=== PATIENT | male | born 1955 | race Caucasian/White ===

== ENCOUNTER 2022-10-03 06:02 | Day surgery (SDC) | payer BC ==
[2022-09-28 11:54] LABS: BASOPHILS # (AUTO) 0.1 X10'3 (0-0.2); BASOPHILS % (AUTO) 0.7 % (0-1); EOSINOPHILS # (AUTO) 0.2 X10'3 (0-0.9); EOSINOPHILS % (AUTO) 2.4 % (0-6); HEMATOCRIT 43.6 % (42.0-52.0); HEMOGLOBIN 14.8 g/dl (14.0-17.9); LYMPHOCYTES # (AUTO) 1.5 X10'3 (1.1-4.8); MEAN CORPUSCULAR HEMOGLOBIN 29.8 PG (27.0-31.0); MEAN CORPUSCULAR HGB CONC 33.9 g/dL (33.0-36.5); MEAN CORPUSCULAR VOLUME 87.7 FL (78-98); MONOCYTES # (AUTO) 0.7 X10'3 (0-0.9); NEUTROPHILS # (AUTO) 7.6 X10'3 (1.8-7.7); NEUTROPHILS % (AUTO) 74.9 % (42-75); PLATELET COUNT 213 X10'3 (140-440); RED BLOOD COUNT 4.97 X10'6 (4.70-6.10); RED CELL DISTRIBUTION WIDTH 14.1 % (11.5-14.5); WHITE BLOOD COUNT 10.2 X10'3 (4.5-11.0)
[2022-09-28 12:05] LABS: APTT 30 SECONDS (22-32)
[2022-09-28 12:08] LABS: ALANINE AMINOTRANSFERASE 29 U/L (12-78); ALBUMIN/GLOBULIN RATIO 1.1 (1.1-1.5); ALKALINE PHOSPHATASE 60 IU/L (46-116); ANION GAP 11 (8-16); ASPARTATE AMINO TRANSFERASE 20 U/L (10-37); BILIRUBIN,TOTAL 0.5 MG/DL (0.1-1.0); BLOOD UREA NITROGEN 60 MG/DL (7-18); BUN/CREATININE RATIO 21.7 (10.0-20.0); CALCIUM 9.6 MG/DL (8.5-10.1); CHLORIDE 106 MMOL/L (99-107); CREATININE 2.76 MG/DL (0.60-1.10); GLUCOSE 122 MG/DL (70-104); POTASSIUM 3.4 MMOL/L (3.5-5.1); SODIUM 144 MMOL/L (135-145); TOTAL CARBON DIOXIDE 26.8 MMOL/L (24-32); TOTAL PROTEIN 7.6 G/DL (6.4-8.2); eGFR 23 ML/MIN
[2022-10-03] VITALS (12 sets, daily range): BP systolic 144–165; BP diastolic 62–100; PULSE 61–70; RESP 5–15; TEMP 98; O2SAT 93–96
[~2022-10-03] VITALS: Ht 190.5 cm; Wt 140.7 kg
[2022-10-03] MEDS ORDERED: AMLO-708 PO (06:25)
[2022-10-03] MEDS ORDERED: LOSA1TAB39 PO (06:25)
[2022-10-03] MEDS ORDERED: CARV-50 PO (06:25)
[2022-10-03] MEDS ORDERED: ATEN50TA8 PO (06:25)
[2022-10-03] MEDS ORDERED: ALLO100T PO (06:25)
[2022-10-03] MEDS ORDERED: nitroGLYCERIN 0.4mg SUBLingual tab SL PRN ×2 (06:30→12:20)
[2022-10-03] MEDS ORDERED: normal saline 1,000 ML IV SCH (06:30)
[2022-10-03] MEDS ORDERED: LORazepam 0.5 MG tablet PO PRN (06:30)
[2022-10-03] MEDS ORDERED: diphenhydrAMINE 25mg capsule PO PRN (06:30)
[2022-10-03] MEDS ORDERED: midazolam 1 mg/ML 2ml injection ONE ×2 (10:29→11:21)
[2022-10-03] MEDS ORDERED: fentaNYL/PF 50MCG/1 ML 2ML syringe ONE (10:29)
[2022-10-03] MEDS ORDERED: LIDOcaine 1% (10mg/ml)w/preservative inj. 20ml MDV ONE (10:29)
[2022-10-03] MEDS ORDERED: iohexol 350 MG/ML 50ML vial IV ONE ×2 (10:29→11:15)
[2022-10-03] MEDS ORDERED: iohexol 350MG/ML 100ml bottle IV ONE (10:30)
[2022-10-03] MEDS ORDERED: hydrALAZINE 20mg/ml inj. IV ONE (10:50)
[2022-10-03] MEDS ORDERED: nitroGLYCERIN-Tridil 50MG/D5W 250 ML IV ONE (11:06)
[2022-10-03] MEDS ORDERED: ondansetron/PF 4mg/2ml inj IV PRN (12:20)
[2022-10-03] MEDS ORDERED: HYDROcodone/acetaminophen 5mg/325mg tablet PO PRN (12:20)
[2022-10-03] MEDS ORDERED: HYDROcodone/acetaminophen 10/325mg tab PO PRN (12:20)
[2022-10-03] MEDS ORDERED: OXAZEpam 15mg capsule PO PRN (12:20)
[2022-10-03] MEDS ORDERED: sodium chloride 0.45% 1,000 ML IV SCH (12:25)
== END 2022-10-03 17:30 | disposition home or self-care (01) ==
LOC: SSTAY O 06:02
PROVIDERS: ATTEND Internal Medicine Cardiovascular Disease
DX: I25.118 Atherosclerotic heart disease of native coronary artery with other forms of angina pectoris (principal); I12.9 Hypertensive chronic kidney disease with stage 1 through stage 4 chronic kidney disease, or unspecified chronic kidney disease; N18.4 Chronic kidney disease, stage 4 (severe); M10.9 Gout, unspecified; E78.5 Hyperlipidemia, unspecified; M19.90 Unspecified osteoarthritis, unspecified site; E66.9 Obesity, unspecified; Z68.38 Body mass index [BMI] 38.0-38.9, adult; Z72.89 Other problems related to lifestyle; Z79.899 Other long term (current) drug therapy
CPT/HCPCS: 36415; 71046; 80053; 83880; 85025; 85610; 85730; 93005; 93306; 93458; 99152; J0360; J1644; J2250; J3010; J3490; J7030; Q0163; Q9967; 93454; 99153; A6258; C1760; C1769

== ENCOUNTER 2023-11-07 08:36 | Day surgery (SDC) | payer MEDICARE ==
[2023-10-31 11:32] LABS: BASOPHILS # (AUTO) 0.1 X10'3 (0-0.2); BASOPHILS % (AUTO) 0.7 % (0-1); EOSINOPHILS # (AUTO) 0.3 X10'3 (0-0.9); EOSINOPHILS % (AUTO) 2.6 % (0-6); LYMPHOCYTES # (AUTO) 1.5 X10'3 (1.1-4.8); LYMPHOCYTES % (AUTO) 15.4 % (21-51); MEAN CORPUSCULAR HEMOGLOBIN 29.9 PG (27.0-31.0); MEAN CORPUSCULAR HGB CONC 34.2 g/dL (33.0-36.5); MEAN CORPUSCULAR VOLUME 87.6 FL (78-98); MONOCYTES # (AUTO) 0.7 X10'3 (0-0.9); MONOCYTES % (AUTO) 7.1 % (2-12); NEUTROPHILS # (AUTO) 7.2 X10'3 (1.8-7.7); NEUTROPHILS % (AUTO) 74.2 % (42-75); PRE OP HEMATOCRIT 42.7 % (42.0-52.0); PRE OP HEMOGLOBIN 14.6 g/dL (14.0-17.9); PRE OP PLATELET COUNT 202 X10'3 (140-440); PRE OP WHITE BLOOD COUNT 9.7 10'3 (4.8-10.8); RED BLOOD COUNT 4.87 X10'6 (4.70-6.10)
[2023-10-31 11:46] LABS: ALBUMIN 3.8 G/DL (3.4-5.0); ALBUMIN/GLOBULIN RATIO 1.1 (1.1-1.5); ALKALINE PHOSPHATASE 59 IU/L (46-116); BLOOD UREA NITROGEN 50 MG/DL (7-18); BUN/CREATININE RATIO 18.9 (10.0-20.0); CALCIUM 9.4 MG/DL (8.5-10.1); CHLORIDE 108 MMOL/L (99-107); CREATININE 2.64 MG/DL (0.60-1.10); PRE OP ALT 28 U/L (30-65); PRE OP ANION GAP 12 (8-16); PRE OP AST 19 U/L (10-37); PRE OP BILIRUB, TOTAL 0.5 MG/DL (0.0-1.0); PRE OP GLUCOSE 108 MG/DL (70-104); PRE OP POTASSIUM 3.4 MMOL/L (3.4-5.1); PRE OP SODIUM 145 MMOL/L (135-145); TOTAL CARBON DIOXIDE 24.7 MMOL/L (24-32); TOTAL PROTEIN 7.4 G/DL (6.4-8.2); eGFR 24 ML/MIN
[2023-11-07] VITALS (9 sets, daily range): BP systolic 158–186; BP diastolic 93–111; PULSE 65–76; RESP 10–16; TEMP 98.5; O2SAT 90–98
[~2023-11-07] VITALS: Ht 188 cm; Wt 136.1 kg
[~2023-11-07 08:36] MED LIST: ALLO100T PO; AMLO-708 PO; CARV-50 PO; LOSA1TAB39 PO; famotidine 20mg tablet PO ONE; ringers solution, lacted 1,000 ML IV SCH
[2023-11-07] MEDS: DOCUMENT DATE & TIME OF BETA-BLOCKER PO ONE (08:55)
[2023-11-07] MEDS: Cefazolin 3 GM/100ML NS IVPB 100 ML IV ONE (08:55)
[2023-11-07] MEDS ORDERED: LIDOcaine 1% (10mg/ml)w/preservative inj. 20ml MDV ONE (09:57)
[2023-11-07] MEDS ORDERED: BUPIVAcaine 2.5mg/ml inj 50ml vial (contains preservative) ONE (09:57)
[2023-11-07] MEDS ORDERED: BUPIVACAINE liposomal/PF 13.3 MG/ML vial IM ONE (09:58)
[2023-11-07] MEDS ORDERED: BUPIVAcaine/PF 2.5mg/ml (0.25%) 10ml vial ONE (09:58)
[2023-11-07] MEDS ORDERED: sevoflurane 250ml liquid IH ONE (10:10)
[2023-11-07] MEDS ORDERED: propofol inj 20 ML IV ONE (10:15)
[2023-11-07] MEDS ORDERED: midazolam 1 mg/ML 2ml injection ONE (10:15)
[2023-11-07] MEDS ORDERED: fentaNYL/PF 50MCG/1 ML 2ML syringe ONE (10:15)
[2023-11-07] MEDS ORDERED: LIDOcaine 2% (20mg/ml) 5ml vial ONE (10:16)
[2023-11-07] MEDS ORDERED: rocuronium 10mg/ml inj IV ONE ×2 (10:16→10:27)
[2023-11-07] MEDS ORDERED: ondansetron/PF 4mg/2ml inj ONE (10:16)
[2023-11-07] MEDS ORDERED: dexamethasone sod phosphate 4mg/ml inj. ONE (10:27)
[2023-11-07] MEDS ORDERED: acetaminophen 1,000mg/100ml IV 100 ML IV ONE (10:28)
[2023-11-07] MEDS ORDERED: ringers solution, lacted 1,000 ML IV SCH (10:55)
[2023-11-07] MEDS ORDERED: fentaNYL/PF 50MCG/1 ML 2ML syringe IV PRN (10:55)
[2023-11-07] MEDS ORDERED: morphine 2 MG/ML inj. syringe IV PRN (10:55)
[2023-11-07] MEDS ORDERED: ondansetron/PF 4mg/2ml inj IV PRN (10:55)
[2023-11-07] MEDS ORDERED: sugammadex 200mg/2ml injection IV ONE (10:57)
[2023-11-07] MEDS: BUPIVACAINE liposomal/PF 13.3 MG/ML vial IM ONE (11:01)
[2023-11-07] MEDS: morphine 4 MG/ML inj SYRINge IV PRN (11:43)
[2023-11-07] MEDS: enalaprilat dihydrate 2.5mg/2ml vial IV PRN (11:52)
[2023-11-07] MEDS: fentaNYL/PF 50MCG/1 ML 2ML syringe IV PRN (11:57)
[2023-11-07] MEDS: oxyCODONE/APAP 5-325mg tablet PO PRN (12:52)
== END 2023-11-07 12:57 | disposition home or self-care (01) ==
LOC: PAS 08:36
PROVIDERS: ATTEND Surgery
DX: K43.6 Other and unspecified ventral hernia with obstruction, without gangrene (principal); I12.9 Hypertensive chronic kidney disease with stage 1 through stage 4 chronic kidney disease, or unspecified chronic kidney disease; E11.22 Type 2 diabetes mellitus with diabetic chronic kidney disease; N18.30 Chronic kidney disease, stage 3 unspecified; E66.01 Morbid (severe) obesity due to excess calories; G47.33 Obstructive sleep apnea (adult) (pediatric); Z87.891 Personal history of nicotine dependence; Z79.899 Other long term (current) drug therapy; Z68.38 Body mass index [BMI] 38.0-38.9, adult; Z82.49 Family history of ischemic heart disease and other diseases of the circulatory system; Z83.3 Family history of diabetes mellitus; Z80.9 Family history of malignant neoplasm, unspecified
CPT/HCPCS: 36415; 49594; 80053; 82948; 85025; A4215; A4618; C1781; C9290; J0131; J0690; J1100; J2001; J2250; J2270; J2405; J2704; J3010; J3490; J7030; J7120; Z7506; Z7508; Z7512; Z7610